=== PATIENT | male | born 1945 | race Caucasian/White ===

== ENCOUNTER 2018-11-02 13:50 | Inpatient (IN) | payer MEDICARE, BC ==
[~2018-11-02] VITALS: Ht 185.4 cm; Wt 120.0 kg
--- NOTE | 2018-11-02 14:00 | NUR ---
LEVEL 1 STROKE ALERT WITH LAST KNOWN WELL AT 100 THIS MORNING. AT 11:30 PT WENT TO FIND OUT WHY IT TOOK HER SPOUSE SO LONG TO PUT SHOES ON AND HE BEGAN TO TALK NONSENSE. THIS LASTED MAYBE AN HOUR. HE JUST WASN'T HIMSELF. HE WAS ABLE TO WALK. CURRENTLY HE IS ORIENTED EXCEPT COULD NOT STATE THE YEAR. HE IS ON WARFARIN FOR AN AVR REPLACEMENT IN 1993. PER HIM HIS INR WAS 2.4 2 WEEKS AGO. H/O AVR, ELEVATED CHOLESTEROL,HTN. PT CURRENTLY IN AFIB, DENIES ANY H/O AFIB. [address] Mckeon FROM [facility] AFTER VERBAL CONSENT OBTAINED. NO TPA RECOMMENDED DUE TO WARFARIN USE DAILY EVEN THOUGH INR IS PENDING FROM OUR LAB
--- NOTE | 2018-11-02 14:05 | NUR ---
BRICE RN, STROKE NURSE AT BEDSIDE,
--- NOTE | 2018-11-02 14:13 | NUR ---
PT TRANSPORTED TO CT SCAN WITH STROKE REMEDIOS NARVAEZ AND BIOMEDICAL FIELD SERVICE ENGINEER.
--- NOTE | 2018-11-02 14:21 | NUR ---
TELE NEURO CONSULT INITIATED
[2018-11-02 14:23] LABS: BASOPHILS % (AUTO) 0.3 % (0-1); EOSINOPHILS % (AUTO) 0.3 % (0-6); HEMATOCRIT 37.7 % (42.0-52.0); LYMPHOCYTES % (AUTO) 10.3 % (21-51); MEAN CORPUSCULAR HEMOGLOBIN 32.5 PG (27.0-31.0); MEAN CORPUSCULAR HGB CONC 34.5 g/dL (33.0-36.5); MEAN CORPUSCULAR VOLUME 94.2 FL (78-98); MEAN PLATELET VOLUME 8.5 FL (7.4-10.4); MONOCYTES # (AUTO) 1.1 X10'3 (0-0.9); MONOCYTES % (AUTO) 11.4 % (2-12); NEUTROPHILS # (AUTO) 7.6 X10'3 (1.8-7.7); NEUTROPHILS % (AUTO) 77.7 % (42-75); PLATELET COUNT 208 X10'3 (140-440); WHITE BLOOD COUNT 9.8 X10'3 (4.5-11.0)
[2018-11-02 14:35] LABS: PARTIAL THROMBOPLASTIN TIME 37 SECONDS (22-32)
[2018-11-02 14:37] LABS: ALANINE AMINOTRANSFERASE 20 U/L (12-78); ALBUMIN 3.8 G/DL (3.4-5.0); ALBUMIN/GLOBULIN RATIO 0.9 (1.1-1.5); ALKALINE PHOSPHATASE 60 IU/L (46-116); ANION GAP 11 (8-16); ASPARTATE AMINO TRANSFERASE 20 U/L (10-37); BILIRUBIN,TOTAL 1.2 MG/DL (0.1-1.0); BLOOD UREA NITROGEN 23 MG/DL (7-18); CALCIUM 9.3 MG/DL (8.5-10.1); CHLORIDE 100 MMOL/L (99-107); CREATININE 1.44 MG/DL (0.60-1.10); GLUCOSE 121 MG/DL (70-104); POTASSIUM 3.9 MMOL/L (3.5-5.1); SODIUM 139 MMOL/L (135-145); TOTAL CARBON DIOXIDE 28.3 MMOL/L (24-32); TOTAL PROTEIN 7.9 G/DL (6.4-8.2); eGFR 48 ML/MIN
[2018-11-02 14:40] LABS: TROPONIN I < 0.04 NG/ML (0.0-0.05)
[2018-11-02] MEDS ORDERED: ROSU10TA2 PO (15:25)
[2018-11-02] MEDS ORDERED: METO200T49 PO (15:31)
[2018-11-02] MEDS ORDERED: DICL75TA5 PO (15:31)
[2018-11-02] MEDS ORDERED: OLME1TAB24 PO (15:31)
[2018-11-02] MEDS ORDERED: WARF-55 PO (15:31)
[2018-11-02] MEDS ORDERED: WARF3TAB56 PO ×2 (15:42)
[2018-11-02] MEDS ORDERED: DICL100G30 TP (15:45)
[2018-11-02] MEDS ORDERED: DICL100G15 TOP (15:51)
[2018-11-02] MEDS ORDERED: magnesium hydroxide 30ml (MOM) UD suspension PO PRN (16:15)
[2018-11-02] MEDS ORDERED: potassium Cl 20 mEq SR tablet PO PRN (16:15)
[2018-11-02] MEDS: K and/or MAG REPLACEMENT MC SCH (16:15)
[2018-11-02] MEDS ORDERED: HYDROcodone/acetaminophen 5mg/325mg tablet PO PRN (16:15)
[2018-11-02] MEDS ORDERED: diphenhydrAMINE 25mg capsule PO PRN (16:15)
[2018-11-02] MEDS ORDERED: acetaminophen 650mg rectal suppository RC PRN (16:15)
[2018-11-02] MEDS ORDERED: potassium CL 10mEq/100ml bag 100 ML IV PRN ×2 (16:15)
[2018-11-02] MEDS ORDERED: magnesium 2GM in 50ml NS 50 ML IV PRN (16:15)
[2018-11-02] MEDS ORDERED: bisacodyl 10mg suppository rectal RC PRN (16:15)
[2018-11-02] MEDS ORDERED: acetaminophen 325mg tablet PO PRN ×2 (16:15)
[2018-11-02] MEDS ORDERED: morphine 2 MG/ML inj. syringe IV PRN ×2 (16:15)
[2018-11-02] MEDS ORDERED: mag hydrox/Alum hydrox/simeth 30ml oral suspension PO PRN (16:15)
[2018-11-02] MEDS ORDERED: ondansetron/PF 4mg/2ml inj IV PRN (16:15)
[2018-11-02] MEDS ORDERED: magnesium 4gm in 100ml NS 100 ML IV PRN (16:15)
[2018-11-02] MEDS ORDERED: magnesium Cl slow-release 64mg tablet PO PRN (16:15)
[2018-11-02] MEDS ORDERED: aspirin 325mg tablet PO ONE (16:25)
[2018-11-02] MEDS: DICLOFENAC SODIUM 1 GM TOP SCH ×2 (16:55→20:00)
[2018-11-02 17:29] LABS: HEMOGLOBIN A1C 5.6 % (4.5-6.2)
--- NOTE | 2018-11-02 17:30 | NUR ---
pt arrived to 4022A from MRI and ER. Pt alert and oriented. Oriented pt to room. Pt c/o right foot pain that is chronic d/t neuropathy and arthritis. Denies any other pain.
[2018-11-02] MEDS: atorvastatin 10mg tablet PO SCH (18:04)
[2018-11-02 18:07] VITALS: BP 136/75
[2018-11-02] MEDS: normal saline 1000ml 1,000 ML IV SCH (18:07)
[2018-11-02 20:00] VITALS: BP 136/75
[2018-11-02] MEDS ORDERED: warfarin 5mg tablet PO ONE (21:00)
[2018-11-02] MEDS: furosemide 20 MG/2 ML vial IV SCH (21:29)
[2018-11-02 22:00] VITALS: BP 119/69
[2018-11-03 02:00] VITALS: BP 128/74
[2018-11-03] MEDS: DICLOFENAC SODIUM 1 GM TOP SCH ×4 (02:00→20:00)
[2018-11-03] MEDS: normal saline 1000ml 1,000 ML IV SCH ×3 (02:19→19:22)
--- NOTE | 2018-11-03 06:00 | NUR ---
Patient in room ORTHO 4022. I have received report from [place] and had the opportunity to ask questions and assume patient care.
[2018-11-03 06:04] LABS: BASOPHILS % (AUTO) 0.4 % (0-1); EOSINOPHILS # (AUTO) 0.1 X10'3 (0-0.9); EOSINOPHILS % (AUTO) 0.8 % (0-6); HEMATOCRIT 34.3 % (42.0-52.0); HEMOGLOBIN 11.8 g/dl (14.0-17.9); LYMPHOCYTES # (AUTO) 0.9 X10'3 (1.1-4.8); LYMPHOCYTES % (AUTO) 11.8 % (21-51); MEAN CORPUSCULAR HGB CONC 34.5 g/dL (33.0-36.5); MEAN CORPUSCULAR VOLUME 92.8 FL (78-98); MEAN PLATELET VOLUME 9.1 FL (7.4-10.4); MONOCYTES # (AUTO) 0.9 X10'3 (0-0.9); MONOCYTES % (AUTO) 10.9 % (2-12); NEUTROPHILS % (AUTO) 76.1 % (42-75); PLATELET COUNT 185 X10'3 (140-440); RED CELL DISTRIBUTION WIDTH 13.9 % (11.5-14.5); WHITE BLOOD COUNT 7.9 X10'3 (4.5-11.0)
[2018-11-03 07:00] VITALS: BP 120/73
[2018-11-03 07:10] LABS: ALANINE AMINOTRANSFERASE 17 U/L (12-78); ALBUMIN 3.3 G/DL (3.4-5.0); ALBUMIN/GLOBULIN RATIO 0.9 (1.1-1.5); ALKALINE PHOSPHATASE 53 IU/L (46-116); ANION GAP 12 (8-16); ASPARTATE AMINO TRANSFERASE 18 U/L (10-37); BILIRUBIN,TOTAL 1.2 MG/DL (0.1-1.0); BLOOD UREA NITROGEN 20 MG/DL (7-18); CHLORIDE 103 MMOL/L (99-107); CHOLESTEROL 131 MG/DL (0-200); CREATININE 1.11 MG/DL (0.60-1.10); GLUCOSE 122 MG/DL (70-104); HDL CHOLESTEROL 64 MG/DL (35-60); LDL CHOLESTEROL 54 MG/DL (50-100); MAGNESIUM 1.9 MG/DL (1.5-2.4); POTASSIUM 3.4 MMOL/L (3.5-5.1); SODIUM 139 MMOL/L (135-145); TOTAL CARBON DIOXIDE 23.6 MMOL/L (24-32); TRIGLYCERIDES 91 MG/DL (20-135); eGFR 65 ML/MIN
[2018-11-03] MEDS: losartan 50mg tablet PO SCH (08:00)
[2018-11-03] MEDS: furosemide 20 MG/2 ML vial IV SCH ×2 (08:00→19:20)
[2018-11-03] MEDS: K and/or MAG REPLACEMENT MC SCH (08:00)
[2018-11-03] MEDS: metoprolol succinate 25mg (24-HOUR) SR. Tablet PO SCH (08:00)
[2018-11-03] MEDS ORDERED: non-formulary drug (Rosuvastatin Calcium* (Crestor*) 1 TAB) PO SCH (08:00)
[2018-11-03] MEDS: HYDROchlorothiazide 25mg tablet PO SCH (08:00)
[2018-11-03 08:20] VITALS: BP 96/59
[2018-11-03] MEDS: aspirin 81mg tablet.DR PO SCH (08:25)
[2018-11-03] MEDS: potassium Cl 20 mEq SR tablet PO PRN ×3 (08:25→20:42)
[2018-11-03] MEDS: atorvastatin 10mg tablet PO SCH (08:26)
[2018-11-03] MEDS: HYDROcodone/acetaminophen 10/325mg tab PO PRN ×2 (09:49→21:53)
[2018-11-03 10:00] VITALS: BP 124/69
[2018-11-03] MEDS ORDERED: pneumococcal 23-VAL P-sac vacc 25 mcg/0.5ml vial IMVAC ONE (10:00)
--- NOTE | 2018-11-03 15:33 | NUR ---
PAGER ID: [phone] MESSAGE: Sho Aldrich, Mr. Mccormick in room 4022A, was inquiring about discharge plans for today. Please advise Thank you Bella # [phone]
--- NOTE | 2018-11-03 17:15 | NUR ---
Dr Aldrich requesting SOC consult regarding right carotid stenosis via carotid U/S of 60-79%. 1800 Spoke with SOC dispatch and requested phone consult with Dr Elinor muse if possible.
[2018-11-03 17:30] VITALS: BP 138/71
--- NOTE | 2018-11-03 18:15 | NUR ---
Patient in room ORTHO 4022. I have received report from Bella WHITTAKER and had the opportunity to ask questions and assume patient care.
--- NOTE | 2018-11-03 18:22 | NUR ---
Problems reprioritized. Patient report given, questions answered & plan of care reviewed with Carmella.
[2018-11-03] MEDS ORDERED: warfarin 3mg tablet PO ONE (21:00)
[2018-11-03 22:00] VITALS: BP 122/63
[2018-11-03 23:45] LABS: CLARITY,URINE CLEAR (Clear); COLOR,URINE YELLOW (Yellow); GLUCOSE, URINE NEGATIVE (Neg); KETONES,URINE NEGATIVE (Neg); LEUKOCYTE ESTERASE ,URINE NEGATIVE (Neg); NITRITES, URINE NEGATIVE (Neg); OCCULT BLOOD,URINE NEGATIVE (Neg); PH,URINE 5.5 (4.8-8.0); PROTEIN,URINE NEGATIVE (Neg); UA COLLECTION TYPE CLN CATCH MIDSTREAM; UROBILINOGEN,URINE 0.2 E.U/dL (0.2-1.0)
[2018-11-04] MEDS: DICLOFENAC SODIUM 1 GM TOP SCH ×2 (02:00→08:00)
[2018-11-04 06:00] VITALS: BP 109/85
--- NOTE | 2018-11-04 06:26 | NUR ---
7Problems reprioritized. Patient report given, questions answered & plan of care reviewed with Bella WHITTAKER and Marie ZARAGOZA. Addendum: 11/04/18 at 0627 by Carmella Cummings RN Ignore the number 7 from this note
[2018-11-04 06:57] LABS: BASOPHILS % (AUTO) 0.4 % (0-1); EOSINOPHILS # (AUTO) 0.2 X10'3 (0-0.9); EOSINOPHILS % (AUTO) 2.9 % (0-6); HEMATOCRIT 36.3 % (42.0-52.0); HEMOGLOBIN 12.4 g/dl (14.0-17.9); LYMPHOCYTES # (AUTO) 0.6 X10'3 (1.1-4.8); LYMPHOCYTES % (AUTO) 10.5 % (21-51); MEAN CORPUSCULAR HEMOGLOBIN 32.2 PG (27.0-31.0); MEAN CORPUSCULAR HGB CONC 34.1 g/dL (33.0-36.5); MEAN CORPUSCULAR VOLUME 94.5 FL (78-98); MEAN PLATELET VOLUME 9.1 FL (7.4-10.4); MONOCYTES # (AUTO) 0.6 X10'3 (0-0.9); MONOCYTES % (AUTO) 10.1 % (2-12); NEUTROPHILS # (AUTO) 4.4 X10'3 (1.8-7.7); NEUTROPHILS % (AUTO) 76.1 % (42-75); PLATELET COUNT 184 X10'3 (140-440); RED BLOOD COUNT 3.84 X10'6 (4.70-6.10); WHITE BLOOD COUNT 5.8 X10'3 (4.5-11.0)
--- NOTE | 2018-11-04 07:02 | NUR ---
Patient in room ORTHO 4022. I have received report from Carmella and had the opportunity to ask questions and assume patient care.
[2018-11-04 07:09] LABS: ALANINE AMINOTRANSFERASE 21 U/L (12-78); ALBUMIN 3.3 G/DL (3.4-5.0); ALBUMIN/GLOBULIN RATIO 0.8 (1.1-1.5); ALKALINE PHOSPHATASE 60 IU/L (46-116); ANION GAP 9 (8-16); ASPARTATE AMINO TRANSFERASE 21 U/L (10-37); BILIRUBIN,TOTAL 0.9 MG/DL (0.1-1.0); BLOOD UREA NITROGEN 22 MG/DL (7-18); BUN/CREATININE RATIO 20.2 (5.4-32.0); CALCIUM 9.6 MG/DL (8.5-10.1); CHLORIDE 103 MMOL/L (99-107); CREATININE 1.09 MG/DL (0.60-1.10); GLUCOSE 113 MG/DL (70-104); MAGNESIUM 2.1 MG/DL (1.5-2.4); POTASSIUM 4.2 MMOL/L (3.5-5.1); SODIUM 140 MMOL/L (135-145); TOTAL CARBON DIOXIDE 27.8 MMOL/L (24-32); TOTAL PROTEIN 7.3 G/DL (6.4-8.2); eGFR 66 ML/MIN
[2018-11-04] MEDS: K and/or MAG REPLACEMENT MC SCH (08:00)
[2018-11-04] MEDS: furosemide 20 MG/2 ML vial IV SCH (08:27)
[2018-11-04] MEDS: losartan 50mg tablet PO SCH (08:27)
[2018-11-04] MEDS: HYDROchlorothiazide 25mg tablet PO SCH (08:27)
[2018-11-04] MEDS: atorvastatin 10mg tablet PO SCH (08:28)
[2018-11-04] MEDS: aspirin 81mg tablet.DR PO SCH (08:28)
[2018-11-04] MEDS: metoprolol succinate 25mg (24-HOUR) SR. Tablet PO SCH (08:28)
[2018-11-04] MEDS ORDERED: ASPI-1071 PO (08:48)
[2018-11-04 10:00] VITALS: BP 125/71
--- NOTE | 2018-11-04 11:50 | NUR ---
Reviewed discharge instructions with pt and spouse. Pt verbalized understanding. Pt is alert, oriented and does not have any c/o pain. All of pt's belongings were returned to pt. Pt was wheeled downstairs to be driven home by his spouse.
== END 2018-11-04 11:45 | disposition home or self-care (01) | DRG 69 ==
LOC: ER 13:52 → ORTHO 4S 17:10
PROVIDERS: ADMIT Family Medicine; ATTEND Family Medicine
PROC: 3E0234Z Introduction of Serum, Toxoid and Vaccine into Muscle, Percutaneous Approach (ICD-10-PCS; principal; 2018-11-03)
PROC: 4A10X4Z Monitoring of Central Nervous Electrical Activity, External Approach (ICD-10-PCS; 2018-11-03)
DX: G45.9 Transient cerebral ischemic attack, unspecified (principal); N17.9 Acute kidney failure, unspecified; E78.00 Pure hypercholesterolemia, unspecified; E78.5 Hyperlipidemia, unspecified; E86.0 Dehydration; G62.9 Polyneuropathy, unspecified; R60.0 Localized edema; I65.21 Occlusion and stenosis of right carotid artery; I10 Essential (primary) hypertension; I48.91 Unspecified atrial fibrillation; Z79.01 Long term (current) use of anticoagulants; Z23 Encounter for immunization; Z79.899 Other long term (current) drug therapy; Z82.0 Family history of epilepsy and other diseases of the nervous system; Z82.49 Family history of ischemic heart disease and other diseases of the circulatory system; Z95.2 Presence of prosthetic heart valve
CPT/HCPCS: 36415; 70450; 70544; 70551; 71045; 80053; 80061; 81003; 82948; 83036; 83735; 84443; 84484; 85025; 85610; 85730; 87081; 90732; 92508; 92616; 93005; 93306; 93880; 93970; 95816; 97116; 97161; 97530; 99285; G0378; J1940; J7030

== ENCOUNTER 2019-12-04 13:34 | Day surgery (SDC) | payer MEDICARE, BC ==
[2019-12-04] VITALS (7 sets, daily range): BP systolic 131–147; BP diastolic 68–82
[~2019-12-04] VITALS: Ht 182.9 cm; Wt 124.5 kg
[~2019-12-04 13:34] MED LIST: ACET-1008 PO; ASPI-529 PO; ATOR20TA66 PO; CELE200C PO; DOCU-148 PO; DOCUMENT DATE & TIME OF BETA-BLOCKER PO ONE; FURO40TA4 PO; HYDR-4383 PO; LOSA50TA64 PO; MESSAGE TO NURSING IV ONE; METO50TA7 PO; OMEP-50 PO; POTA20TA19 PO; WARF3TAB56 PO; famotidine 20mg tablet PO ONE; meperidine/PF 25mg/ml syringe IV PRN; morphine 2 MG/ML inj. syringe IV PRN; morphine 4 MG/ML inj SYRINge IV PRN; ondansetron/PF 4mg/2ml inj IV PRN; proCHLORperazine 10 MG/2 ml inj IV PRN; ringers solution, lacted 1,000 ML IV SCH
[2019-12-04 14:46] LABS: BASOPHILS % (AUTO) 0.6 % (0-1); EOSINOPHILS # (AUTO) 0.2 X10'3 (0-0.9); EOSINOPHILS % (AUTO) 2.7 % (0-6); LYMPHOCYTES # (AUTO) 0.7 X10'3 (1.1-4.8); MEAN CORPUSCULAR HEMOGLOBIN 30.4 PG (27.0-31.0); MEAN CORPUSCULAR HGB CONC 33.8 g/dL (33.0-36.5); MEAN PLATELET VOLUME 8.6 FL (7.4-10.4); MONOCYTES # (AUTO) 0.5 X10'3 (0-0.9); MONOCYTES % (AUTO) 8.7 % (2-12); NEUTROPHILS # (AUTO) 4.5 X10'3 (1.8-7.7); PRE OP HEMATOCRIT 35.5 % (42.0-52.0); PRE OP PLATELET COUNT 242 X10'3 (140-440); RED BLOOD COUNT 3.94 X10'6 (4.70-6.10); RED CELL DISTRIBUTION WIDTH 15.1 % (11.5-14.5)
[2019-12-04 14:59] LABS: PRE OP PROTIME 22.4 SECONDS (9.0-12.0)
[2019-12-04 15:02] LABS: ALBUMIN 3.1 G/DL (3.4-5.0); ALBUMIN/GLOBULIN RATIO 0.8 (1.1-1.5); ALKALINE PHOSPHATASE 95 IU/L (46-116); BLOOD UREA NITROGEN 18 MG/DL (7-18); BUN/CREATININE RATIO 18.8 (5.4-32.0); CALCIUM 9.8 MG/DL (8.5-10.1); CHLORIDE 105 MMOL/L (99-107); CREATININE 0.96 MG/DL (0.60-1.10); PRE OP ALT 24 U/L (30-65); PRE OP ANION GAP 11 (8-16); PRE OP AST 26 U/L (10-37); PRE OP BILIRUB, TOTAL 0.9 MG/DL (0.0-1.0); PRE OP GLUCOSE 95 MG/DL (70-104); PRE OP INR 2.2 INR; PRE OP POTASSIUM 4.5 MMOL/L (3.4-5.1); PRE OP SODIUM 140 MMOL/L (135-145); TOTAL CARBON DIOXIDE 24.5 MMOL/L (24-32); TOTAL PROTEIN 6.9 G/DL (6.4-8.2); eGFR 77 ML/MIN
[2019-12-04] MEDS ORDERED: HYDROmorphone inj. 0.5 MG/0.5 ML DISP.SYRIN IV PRN ×2 (16:00)
[2019-12-04] MEDS ORDERED: ondansetron/PF 4mg/2ml inj IV PRN (16:00)
[2019-12-04] MEDS ORDERED: ringers solution, lacted 1,000 ML IV SCH (16:00)
[2019-12-04] MEDS ORDERED: morphine 2 MG/ML inj. syringe IV PRN (16:00)
[2019-12-04] MEDS ORDERED: fentaNYL/PF 50MCG/1 ML 2ML syringe ONE ×2 (16:05→17:00)
[2019-12-04] MEDS ORDERED: LIDOcaine 2% (20mg/ml) 5ml vial ONE (16:06)
[2019-12-04] MEDS ORDERED: propofol inj 20 ML IV ONE (16:06)
[2019-12-04] MEDS ORDERED: vancomycin 1,000mg inj ONE (16:19)
[2019-12-04] MEDS ORDERED: sevoflurane 250ml liquid IH ONE (16:31)
[2019-12-04] MEDS ORDERED: ceFAZolin 1000mg inj ONE (17:26)
[2019-12-04] MEDS ORDERED: ondansetron/PF 4mg/2ml inj ONE (17:26)
[2019-12-04] MEDS ORDERED: ePHEDrine 50MG/ML INJ. ONE (17:26)
[2019-12-04] MEDS ORDERED: acetaminophen 1,000mg/100ml IV 100 ML IV ONE (17:26)
--- NOTE | 2019-12-04 17:37 | NUR ---
Received from OR via [facility], accompanied by Anesthesiologist Lexus and report given by Anesthesiolgist. VS stable, pt very sleepy, mask to 10L sats 98%. 20G right forearm LR IVF at 100cc/hr. Pt surgical knee (left) has xeroform 4x4s and michael wrap underneath immobilizer brace. Distal pulses palpable. Will apply ice, cannot apply scds.
--- NOTE | 2019-12-04 19:17 | NUR ---
Pt discharged to vehicle without incident. IV DC'd. [facility] personnel assisted with transfer into vehicle. will transport back to [facility]. Pt is back in his own wheelchair. Knee dressing remains CDI. All belongings returned to patient. He is alert and oriented, understanding of all DC instructions. I spoke with Ellis WHITTAKER at [facility] prior to patient being transported and gave him report on pt status post op. All his questions were answered.
== END 2019-12-04 19:17 | disposition home or self-care (01) ==
LOC: PAS 13:34
PROVIDERS: ATTEND Orthopaedic Surgery
DX: S76.111A Strain of right quadriceps muscle, fascia and tendon, initial encounter (principal); I10 Essential (primary) hypertension; I48.91 Unspecified atrial fibrillation; E66.9 Obesity, unspecified; Z68.37 Body mass index [BMI] 37.0-37.9, adult; Z86.73 Personal history of transient ischemic attack (TIA), and cerebral infarction without residual deficits; Z96.652 Presence of left artificial knee joint; Z20.828 Contact with and (suspected) exposure to other viral communicable diseases; Z98.890 Other specified postprocedural states; Z79.01 Long term (current) use of anticoagulants; W19.XXXA Unspecified fall, initial encounter; Y93.89 Activity, other specified; Y92.89 Other specified places as the place of occurrence of the external cause; Y99.8 Other external cause status
CPT/HCPCS: 27385; 36415; 80053; 85025; 85610; 85730; 87635; A6222; A6454; C9803; J0131; J0690; J2001; J2405; J2704; J3010; J3370; A6449; A7000; J7120

== ENCOUNTER 2024-12-19 20:07 | Inpatient (IN) | payer MEDICARE, BC ==
[~2024-12-19] VITALS: Ht 185.4 cm; Wt 102.3 kg
[~2024-12-19 20:07] MED LIST changes: -DOCUMENT DATE & TIME OF BETA-BLOCKER PO ONE; -MESSAGE TO NURSING IV ONE; -OMEP-50 PO; +OMEP20CA16 PO; +POTA-207 PO; -POTA20TA19 PO; -famotidine 20mg tablet PO ONE; -meperidine/PF 25mg/ml syringe IV PRN; -morphine 2 MG/ML inj. syringe IV PRN; -morphine 4 MG/ML inj SYRINge IV PRN; -ondansetron/PF 4mg/2ml inj IV PRN; -proCHLORperazine 10 MG/2 ml inj IV PRN; -ringers solution, lacted 1,000 ML IV SCH
[2024-12-19 21:36] LABS: CREATININE 1.30 MG/DL (0.60-1.10); TOTAL CARBON DIOXIDE 22.8 MMOL/L (24-32); eCRCL 53 ML/MIN; eGFR 53 ML/MIN
[2024-12-19 21:37] LABS: MEAN PLATELET VOLUME 9.6 FL (7.4-10.4); RED CELL DISTRIBUTION WIDTH 14.5 % (11.5-14.5)
--- NOTE | 2024-12-19 22:04 | ELECTROCARDIOGRAPH REPORT ---
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 HANH Muñoz Measurements Intervals [place] Rate: 77 P: 0 AL: 0 QRS: -44 QRSD: 103 T: 34 QT: 389 QTc: 441 Interpretive Statements Atrial fibrillation Left axis deviation Abnormal R-wave progression, late transition Minimal ST depression, lateral leads Electronically Signed On 12-22-2024 18:00:[address] HANH Muoñz Please click the below link to view image of tracing.
[2024-12-19 22:10] LABS: BANDS% (MANUAL) 4.0 % (0-10); EOSINOPHILS % (MANUAL) 1.0 % (0-6); LYMPHOCYTES % (MANUAL) 3.0 % (21-51); MONOCYTES % (MANUAL) 3.0 % (2-12); NEUTROPHILS % (MANUAL) 89.0 % (42-75); PLATELET ESTIMATE NORMAL
--- NOTE | 2024-12-19 23:57 | Physician Documentation ---
History of Present Illness ~ Chief Complaint: Weakness Stated Complaint: POSSIBLE STROKE Time Seen by MD: 23:45 OK to notify your PCP?: Yes Primary Medical Doctor: Alan Roberts MD HPI Patient presents to the emergency room not acting like himself. at bedside states that he woke up this morning that has acting like himself but around noon started to act in usual. Patient does have weakness but it is generalized. at bedside states that he seemed to improve however this evening started to experience it again therefore brought him in to be evaluated. Patient alert and oriented but slow to respond. 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 Medication Reconciliation Allergies: Coded Allergies: No Known Allergies (Unverified , 11/02/18) Scheduled Aspirin (Baby Aspirin), 1 TAB PO HS, (Reported) Atorvastatin Calcium (Atorvastatin Calcium), 1 TAB PO HS, (Reported) Furosemide 40 MG (Lasix), 1 TAB PO DAILY, (Reported) Losartan Potassium (Losartan Potassium), 1 TAB PO DAILY, (Reported) Metoprolol Succinate (Metoprolol Succinate), 1 TAB PO DAILY, (Reported) Potassium Chloride (Potassium Chloride), 1 TAB PO DAILY, (Reported) Warfarin Sodium (Warfarin Sodium), 1 TAB PO DAILY, (Reported) Discontinued Medications Acetaminophen (Tylenol), 2 TAB PO QDAY PRN PRN for pain or fever, (Reported) Discontinued Reason: completed med therapy Celecoxib (Celebrex), 1 CAP PO DAILY, (Reported) Discontinued Reason: completed med therapy Docusate Sodium (Colace), 1 CAP PO Q12H, (Reported) Discontinued Reason: completed med therapy Hydrocodone/Acetaminophen ([place] 5-325 Tablet), 1-2 TAB PO Q4HPRN PRN for pain, (Reported) Discontinued Reason: completed med therapy Losartan Potassium (Losartan Potassium), 1 TAB PO DAILY, (Reported) Discontinued Reason: completed med therapy Metoprolol Succinate* (Toprol Xl*), 1 TAB PO DAILY, (Reported) Discontinued Reason: completed med therapy Omeprazole (Omeprazole), 1 CAP PO DAILY, (Reported) Discontinued Reason: completed med therapy Potassium Chloride* (K-Dur*), 2 TAB PO QAM, (Reported) Discontinued Reason: completed med therapy Past Medical History Past Medical History: Atrial Fibrillation, High Cholesterol, Hypertension Past Surgical History: noncontributory, heart valve surgery Alcohol Use: Other Drug Use: none Lives In: Home Occupation: retired Review of Systems ROS All review of systems negative except as per HPI Physical Exam Vital Signs: Heart Rate: 104, Respiratory Rate: 16, BP: 185/96, Pulse Oximetry: 94, Weight: 102.300 Physical Exam General: Patient is awake, alert, oriented x4 in no acute distress Head: Normocephalic and atraumatic. Eyes: Conjunctival normal. EOMI. PERRL. ENT: Mucous membranes moist. Neck: Supple, trachea is midline. Chest: Clear to auscultation bilaterally without rales, rhonchi, or wheezes. There is no accessory muscle use or retractions. Cardiac: RRR without murmurs, gallops, or rubs. Abd: Soft, nondistended, nontender, with normoactive bowel sounds. No guarding, rebound, or rigidity. Extremities: Normal strength. Normal range of motion. No deformities or edema. Ulcer measuring 8 cm x 4 cm on anterior left mcdonnell without purulent drainage. Neuro: Cranial nerves II-XII grossly intact. No focal neuro deficits. Progress Results/Orders Results/Orders Orders - QUE RIVAS MD Culture Blood (12/19/24 23:46) Chest,Single View (12/20/24 00:12) Cta Abdomen Lower Extr Runoff (12/20/24 01:01) Ct Head (12/20/24 01:05) Page Hospitalist (12/20/24 04:59) Fill Out Med Reconciliation (12/20/24 04:59) Completed Orders - QUE RIVAS MD Procalcitonin (12/19/24 23:46) Ceftriaxone 2gm/D5w 50ml Bag (Rocephin 2 (12/19/24 23:50) Lacticsepsis (12/19/24 23:46) Normal Saline 1000ml (0.9% Sodium Chlori (12/19/24 23:50) Chest,Single View (12/20/24 00:12) Acetaminophen 325mg Tablet (Tylenol Tabl (12/20/24 00:25) Cta Abdomen Lower Extr Runoff (12/20/24 01:01) Vancomycin Inj (Vancomycin Inj) (12/20/24 01:05) Ct Head (12/20/24 01:05) Lactic,2hr (12/20/24 01:41) Iohexol 350mg/Ml 100ml (Omnipaque 350mg/ (12/20/24 02:17) Vancomycin/Ns 1 Gm Add-[place] (Vancomyc (12/20/24 02:20) Medications Received in ER Medications (Trade) Dose Ordered Sig/Bartolo Route PRN Reason Start Time Stop Time Status Last Admin Dose Admin Ceftriaxone Sodium/Dextrose 50 ml @ 100 mls/hr ONCE ONCE IV 12/19/24 23:50 12/20/24 00:19 DC 12/20/24 00:22 100 MLS/HR Sodium Chloride 1,000 ml @ 1,000 mls/hr ONCE ONCE IV 12/19/24 23:50 12/20/24 00:49 DC 12/20/24 00:22 1,000 MLS/HR (Tylenol tablet) 650 mg ONCE ONCE PO 12/20/24 00:25 12/20/24 00:26 DC 12/20/24 00:40 650 MG Vancomycin HCl 200 ml @ 134 mls/hr ONCE ONCE IV 12/20/24 02:20 12/20/24 03:49 DC 12/20/24 03:08 134 MLS/HR Vital Signs 12/19/24 12/20/24 12/20/24 12/20/24 20:08 00:36 00:38 01:00 Temp 99.2 Pulse 104 70 73 Resp 16 19 20 B/P (MAP) 185/96 142/72 (95) 140/72 (94) Pulse Ox 94 95 94 O2 Flow Rate 0 0 12/20/24 12/20/24 12/20/24 02:00 03:00 04:25 Temp 98.2 Pulse 72 67 62 Resp 17 20 21 B/P (MAP) 123/68 (86) 126/75 (92) 139/79 (99) Pulse Ox 93 96 94 O2 Flow Rate 0 0 0 Laboratory Tests Test 12/19/24 21:00 12/20/24 00:00 12/20/24 00:30 12/20/24 02:23 White Blood Count 18.4 H Red Blood Count 4.17 L Hemoglobin 12.8 L Hematocrit 38.1 L Mean Corpuscular Volume 91.5 Mean Corpuscular Hemoglobin 30.7 Mean Corpuscular Hemoglobin Concent 33.6 Red Cell Distribution Width 14.5 Platelet Count 191 Mean Platelet Volume 9.6 Neutrophils (%) (Auto) Lymphocytes (%) (Auto) Monocytes (%) (Auto) Eosinophils (%) (Auto) Basophils (%) (Auto) Neutrophils # (Auto) Lymphocytes # (Auto) Monocytes # (Auto) Eosinophils # (Auto) Basophils # (Auto) CBC Comment Differential Total Cells Counted 100 Neutrophils % (Manual) 89.0 H Band Neutrophils % 4.0 Lymphocytes % (Manual) 3.0 L Monocytes % (Manual) 3.0 Eosinophils % (Manual) 1.0 Platelet Estimate Normal Red Blood Cell Morphology Normal Basophilic Stippling Sodium Level 138 Potassium Level 4.2 Chloride Level 104 Carbon Dioxide Level 22.8 L Anion Gap 11 Blood Urea Nitrogen 23 H Creatinine 1.30 H Estimated GFR/1.73 m2 53 BUN/Creatinine Ratio 17.7 Glucose Level 135 H Calcium Level 9.0 Albumin 3.7 Procalcitonin 1.74 H Chemistry Comments Lactic Acid Level 2.3 H 1.0 Urine Specimen Description Straight cath Urine Color Yellow Urine Clarity Clear Urine pH 5.5 Urine Specific [place] >=1.030 Urine Protein 30 H Urine Glucose (UA) Negative Urine Ketones Negative Urine Occult Blood Small Urine Nitrite Negative Urine Bilirubin Negative Urine Urobilinogen 0.2 Urine Leukocyte Esterase Negative Urine RBC 3-10 Urine WBC 0-4 Urine Squamous Epithelial Cells Few Urine Amorphous Urates 1+ Urine Bacteria None seen Urine Fine Granular Casts 0-3 Urine Mucus None seen Urine Culture Indicated Not ind Volume Urine Centrifuged 10 ml Urine Comment Microbiology Date/Time Source Procedure Growth Status 12/20/24 00:22 Blood Iv Start Blood Culture - Preliminary NEGATIVE (LESS THAN 24 HOURS) Resulted Medical Decision Making Additional information obtaine: N/A Findings EKG interpreted by myself shows time of 03/30/2001, rate 77, atrial fibrillation, left axis deviation, no ST changes Patient presents to the emergency room altered. Differentials include but are not limited to stroke, metabolic encephalopathy, urinary tract infection, electrolyte disturbances therefore emergent labs and imaging indicated. Patient is borderline septic and IV antibiotics has been initiated. Zolpidem infection seems to be cellulitis to his left mcdonnell. Blood pressure is reassuring Differential Dx:Considerations: Include: anemia, CVA, dehydration, dysrhythmia, electrolyte imbalance, encephalopathy, Guillain-Page, hypoglycemia, hypotension, hypovolemia, labyrinthitis, Meniere's disease, myasathenia gravis, myocardial infarction, pulmonary embolus, renal failure, respiratory failure, TIA, VBI, vertigo central, vertigo peripheral, vestibular neuronitis, other Departure Disposition: 01 HOME / SELF CARE / HOMELESS Impression: Primary Impression: Cellulitis Additional Impressions: Early sepsis Metabolic encephalopathy Condition: Guarded Referrals: NO PRIMARY CARE PROVIDER (PCP) Signature Scribe Signature: No scribe Attestation: The note accurately reflects work and decisions made by me.Que Rivas MD 12/20/24 05:58 QUE RIVAS MD Dec 19, 2024 23:57
[2024-12-20] VITALS (8 sets, daily range): BP systolic 106–165; BP diastolic 63–80; PULSE 65–85; RESP 14–16; TEMP 97.5–98.6; O2SAT 94–97
[2024-12-20] MEDS: normal saline 1000ml 1,000 ML IV ONE (00:22)
[2024-12-20] MEDS: CefTRIAXone 2gm/D5W 50ml BAG 50 ML IV ONE (00:22)
--- NOTE | 2024-12-20 00:32 | RADIOLOGY REPORT ---
EXAM: DI CHEST,SINGLE VIEW TECHNIQUE: Single frontal chest radiograph CLINICAL HISTORY: suspected pneumonia COMPARISON: None FINDINGS/IMPRESSION: Minimal basilar opacities. Enlargement of the cardiomediastinal silhouette. No pleural effusion or pneumothorax. Median sternotomy changes are noted. No acute osseous abnormality.
[2024-12-20 00:45] LABS: LEUKOCYTE ESTERASE ,URINE NEGATIVE (Neg); NITRITES, URINE NEGATIVE (Neg); OCCULT BLOOD,URINE SMALL (Neg)
[2024-12-20 00:55] LABS: UA COLLECTION TYPE STRAIGHT CATH
[2024-12-20 00:57] LABS: AMORPHOUS URATES 1+; FINE GRANULAR CAST 0-3 /LPF (NEGATIVE); MUCUS STRANDS NONE SEEN /LPF (Neg); SQUAMOUS EPITHELIAL CELL,UR FEW /LPF (FEW)
[2024-12-20] MEDS ORDERED: vancomycin inj 1,000 MG in normal saline 250ml IV soln 250 ML IV ONE (01:05)
[2024-12-20] MEDS ORDERED: METO-395 PO (01:28)
[2024-12-20] MEDS ORDERED: POTA-366 PO (01:30)
[2024-12-20] MEDS ORDERED: LOSA100T58 PO (01:31)
[2024-12-20] MEDS: vancomycin/NS 1 GM ADD-VANTAGE 200 ML IV ONE (03:08)
--- NOTE | 2024-12-20 03:19 | RADIOLOGY REPORT ---
EXAM: CT CT HEAD INDICATION: ams TECHNIQUE: CT of the head without intravenous contrast. Radiation Dose Information: CT Dose: CTDI volume is 64.0 mGy. Dose-length product is 1432 mGy*cm The dose indicators for CT are the volume Computed Tomography (CT) Dose Index (CTDIvol) and the Dose Length Product (DLP), and are measured in units of mGy and mGy-cm, respectively. These indicators are not patient dose, but values generated from the CT scanner acquisition factors. The report includes radiation exposure data for exposures received during this examination. COMPARISON: None FINDINGS: There is no evidence of acute intracranial hemorrhage, extra-axial collection, mass effect, midline shift, herniation or hydrocephalus. The ventricles, sulci and cisterns are age appropriate. The marcos-white differentiation is intact. Patchy periventricular and subcortical white matter hypoattenuation is nonspecific but may be related to small vessel ischemic disease. The visualized paranasal sinuses and mastoid air cells are clear. The surrounding soft tissues and osseous structures are unremarkable. IMPRESSION: 1. No acute intracranial abnormality.
--- NOTE | 2024-12-20 04:41 | RADIOLOGY REPORT ---
Exam: CT CTA ABDOMEN LOWER EXTR RUNOFF History: Suspected infection Comparison Study: None Technique: CT angiography abdomen pelvis recommended with bilateral lower extremity runoff using 130 mL omnipaque 350 intravenous contrast. Coronal and sagittal reformatted images are provided. Radiation Dose : 1. Abdomen/Pelvis: CTDIvol 11.96 mGy, DLP 290.2 mGy*cm. Findings: Lung Bases: Lung bases are clear. The heart is enlarged. Liver: The liver is normal in size. Low attenuating subcentimeter lesions which are too small to characterize. No focal lesions. Gallbladder and Biliary Tree: The gallbladder is unremarkable. No intrahepatic or extrahepatic biliary ductal dilatation. Spleen: Unremarkable Pancreas: The pancreas enhances normally and there are no focal lesions. The main pancreatic duct is not dilated Adrenal Glands: Unremarkable Kidneys: Kidneys enhance symmetrically. No calculi or hydronephrosis. Left renal cyst. GI tract: The stomach is grossly normal in appearance. No evidence of small bowel wall thickening or abnormal dilatation to suggest bowel obstruction. There is colonic diverticulosis without acute diverticulitis. No findings to suggest acute appendicitis. Peritoneum/mesentery/retroperitoneum. No evidence of free intraperitoneal air. No ascites. No evidence of suspicious lymphadenopathy. Abdominal Wall: Fat containing umbilical hernia . Vasculature: There is no evidence of abdominal aortic aneurysm. There are atherosclerotic calcifications in the abdominal aorta and its branches particularly the celiac and superior mesenteric arteries without significant stenosis. The inferior mesenteric artery is patent. There is moderate stenosis of the origin of the left renal artery and mild to moderate stenosis of the origin of the right renal artery. The splenic artery is patent. Hepatic artery is patent. The bilateral common iliac arteries show scattered atherosclerotic calcifications without significant stenosis. Similar atherosclerotic calcifications are present in the bilateral external and internal iliac arteries. Lower extremity arteries are described below. No active contrast extravasation. Urinary Bladder: Grossly unremarkable for degree of distention. Pelvic Organs: Unremarkable Musculoskeletal: No evidence of periosteal reaction or cortical erosion. No acute fracture. No suspicious bone lesion. Fatty replacement in the bilateral lower extremity muscles. Spinal degenerative changes. Right lower extremity: There are mild atherosclerotic calcifications in the right common femoral and proximal superficial femoral artery without significant stenosis. There is slightly greater atherosclerotic calcifications causing mild stenosis in the distal superficial femoral and the popliteal artery. There is moderate stenosis of the popliteal trifurcation. Heavy atherosclerotic calcifications are present throughout the right anterior tibial, posterior tibial and peroneal artery. Evaluation in the calf arteries is significantly limited by the atherosclerotic calcifications in the vessels and the small size of the vessels which make contrast enhancement difficult to distinguish from the calcification. There appears to be multifocal high-grade stenoses in the right popliteal trifurcation, right posterior tibial, anterior tibial and peroneal arteries. Dorsalis pedis is heavily calcified and difficult to evaluate for patency. There is mild soft tissue swelling in the right lower extremity. No fluid collection. Left lower extremity: The left common femoral artery and superficial femoral artery are patent with mild atherosclerotic calcification seen. The left popliteal artery is obscured at the level of the knee joint due to artifact from total knee arthroplasty. There are atherosclerotic calcifications in the popliteal trifurcation. There is significant multifocal stenoses in the left anterior tibial, posterior tibial and peroneal artery. Dorsalis pedis artery is heavily calcified and difficult to evaluate for patency. There is soft tissue swelling in the anterior and lateral lower extremity. There is contour irregularity in the skin of the distal lower extremity anterior to the tibia which may reflect cellulitis. No fluid collection. IMPRESSION: 1. Evaluation of the calf arteries is limited by the atherosclerotic calcifications in the vessels and the small size of the vessels which make contrast enhancement difficult to distinguish from the calcification. Within this limitation there are multifocal high-grade stenoses in the right popliteal trifurcation and calf arteries. Multifocal high-grade stenoses in the left anterior tibial, posterior tibial and peroneal artery. 2. Soft tissue swelling in the bilateral lower extremities, left greater than right which may reflect cellulitis in the appropriate clinical setting. No fluid collection. 3. Contour irregularity in the skin of the distal left lower extremity anterior to the tibia which may reflect cellulitis. 4. Dorsalis pedis artery is heavily calcified bilaterally and difficult to evaluate for patency. 5. Moderate stenosis of the origin of the left renal artery and mild to moderate stenosis of the origin of the right renal artery. 6. Colonic diverticulosis without acute diverticulitis. 7. Cardiomegaly.
[2024-12-20] MEDS ORDERED: magnesium hydroxide 30ml (MOM) UD suspension PO PRN (05:20)
[2024-12-20] MEDS ORDERED: magnesium sulf-water 2g/50mL 50 ML IV PRN (05:20)
[2024-12-20] MEDS ORDERED: magnesium Cl slow-release 64mg tablet PO PRN (05:20)
[2024-12-20] MEDS ORDERED: ondansetron/PF 4mg/2ml inj IV PRN (05:20)
[2024-12-20] MEDS ORDERED: potassium Cl 40MEQ/1/2NS 520ml 520 ML IV PRN (05:20)
[2024-12-20] MEDS ORDERED: potassium Cl 20 mEq SR tablet PO PRN (05:20)
[2024-12-20] MEDS ORDERED: magnesium sulf-water 4G/100mL 100 ML IV PRN (05:20)
[2024-12-20] MEDS ORDERED: mag hydrox/Alum hydrox/simeth 30ml oral suspension PO PRN (05:20)
[2024-12-20] MEDS ORDERED: ondansetron 4mg rapidly disintigrating tab PO PRN (05:20)
--- NOTE | 2024-12-20 06:37 | HISTORY AND PHYSICAL-Residence ---
History & Physical Providers to CC Resident Creating Document: ROLAND FLORES, RES ~ History of Present Illness Primary Medical Doctor: Alan Roberts MD Reason for Admit\Complaint: Acute metabolic encephalopathy, FIORELLA History of Present Illness This is a 79-year-old male with a past medical history significant for hypertension, aortic stenosis status post TAVR, congestive heart failure, atrial fibrillation, and peripheral artery disease, who presents to the ED with altered level of consciousness. The patient reports no recent changes in speech, focal weakness, facial droop, vision changes, headache, dizziness, syncope, chest pain, palpitations, shortness of breath, or seizure-like activity. He denies fever, chills, nausea, vomiting, or urinary symptoms. He does note altered sensation in his lower extremity, which he attributes to his long-standing peripheral neuropathy. Three weeks ago, the patient underwent surgical resection of melanoma. Since then, he developed a severe infected ulcer on the left lower mcdonnell. In the ED, he received one dose each of ceftriaxone and vancomycin, as well as a 1 L normal saline bolus. CTA of the lower extremity revealed multifocal high-grade stenosis involving the left anterior tibial, posterior tibial, and peroneal arteries. Allergies: Coded Allergies: No Known Allergies (Unverified , 11/02/18) Home Medications Home Medications Active Reported Losartan Potassium 100 Mg Tablet 1 Tab PO DAILY Potassium Chloride 20 Meq Tablet.er 1 Tab PO DAILY Metoprolol Succinate 25 Mg Tab.sr.24h 1 Tab PO DAILY Atorvastatin Calcium 20 Mg Tablet 1 Tab PO HS Baby Aspirin (Aspirin) 81 Mg Tab.chew 1 Tab PO HS Lasix (Furosemide) 40 Mg Tablet 1 Tab PO DAILY Warfarin Sodium 3 Mg Tablet 1 Tab PO DAILY Past Medical History Past Medical History Hypertension Atrial fibrillation Congestive heart failure Melanoma Aortic stenosis this s/p TAVR Past Surgical History Surgical History Comment Total aortic valve replacement Past Social History Social History Comment PCP-Dr. Gray Card[facility]- Lives in home with his family Nonsmoker, occasional alcohol user, denies any drug or marijuana use Smoking: Other Alcohol Use: Other Drug Use: None Lives In: Home Occupation: retired ROS ROS See HPI Exam Vitals: Vital Signs Date Time Temp Pulse Resp B/P (MAP) Pulse Ox O2 Delivery O2 Flow Rate FiO2 12/20/24 05:40 71 19 143/77 (99) 94 0 12/20/24 02:00 98.2 General: Awake , alert, and oriented x4 HEENT: Atraumatic, normocephalic, EOMI, anicteric sclera ; pink conjunctiva Neck: Trachea midline. Supple, full range of motion, no JVD Cardiac: Irregular with 4/6 grade systolic ejection murmur heard all over the precordium Respiratory: Equal breath sounds bilaterally, no tachypnea, no wheezing ,rub or rales, Chest wall is symmetric and without deformity. Gastrointestinal: Abdomen symmetric, non-distended, soft, non-tender, normal bowel sounds x4 quadrant, normoactive, no hepatosplenomegaly Musculoskeletal: 6 cm ulcerated infected wound located on left mcdonnell which is covered with a dressing, Extremities are cold to touch and deformed and peripheral pulses are absent Neurological: Mental status exam: alert and consciousness, orientation, memory, speech - Cranial nerve test: Cranial nerves 2-12 intact - Motor system: Normal Nutrition, normal tone, Power 4/5, no involuntary movements - Sensory system: Numbness in lower extremities(Patient mentioned he is having peripheral neuropathy) - Cerebellar: Normal Skin: Warm and dry Psychiatric:Appropriate mood and affect,No hallucinations or suicidal ideation Diagnostic Data Last Recorded Lab Results: 12/21/2445612/21/24 0457 Advance Care Planning Advanced Care plannin - 30 Minutes Additional Plan 79 years old male with past medical history of hypertension, aortic stenosis s/p TAVR, atrial fibrillation he is currently evaluated for acute metabolic encephalopathy Acute metabolic encephalopathy 2/2 infected ulcer on left lower mcdonnell s/p resection of melanoma Sepsis POA High-grade stenosis of multivessel in lower extremity Differential-stroke can not ruled out Head CT-ruled out any acute intracranial abnormality CTA lower extremity - Multifocal high-grade stenoses in the left anterior tibial, posterior tibial and peroneal artery. WBC-18.4, procalcitonin 1.7, lactic acid 2.3, 1.0 Chest [id number] basilar opacities. Enlargement of the cardiomediastinal silhouette. No pleural effusion or pneumothorax. Median sternotomy changes are noted. No acute osseous abnormality. Patient received 1 L IV bolus in ED, and patient is currently on IV fluids 100 cc/hour Started on Rocephin 1 g IV daily and vancomycin pharmacy to dose Started home med aspirin 81 mg, started atorvastatin 80 mg Neuro checks, wound care consulted, orthostatic vitals ordered Follow up with HbA1c/TSH/lipid panel /ammonia and carotid ultrasound/echocardiogram Acute kidney injury 2/2 renal tubular stasis BUN-23, creatinine 1.3 Patient is currently on maintenance fluid Follow up with spot urine studies Paroxysmal Atrial fibrillation Rate controlled-77 Patient mentioned history of atrial fibrillation and he follows iso coordinator Dr. Jacques Hypertension Patient has a history of hypertension for which she used losartan/metoprolol Patient current blood pressure is over 143/76 Maintain permissive hypertension Aortic stenosis s/p TAVR Patient takes warfarin at home Continue warfarin after med rec Congestive heart failure with preserved ejection-LVEF is 60-65%. ( 09/24/19) not in exacerbation Continue home med after med rec Code Status: Full DVT prophylaxis: Scds Analgesia/Sedation: Line/tube: Peripheral PT: Order Prognosis: Guarded Disposition: Patient will be monitored in ortho with 24 hours telemetry, patient was initially started on heparin drip in view of INR we held heparin, consult Vascular Surgeon in am Roland Flores PGY1-Internal Medicine Resident Addendum I personally reviewed the chart, labs and imaging and reviewed the patient with the team. I agree with the assessment and plan as documented by the resident. Patient was seen through remote audio-visual assessment through HIPAA compliance setup. Date of Service: Dec 20, 2024 Billing Provider: DIMITRI LUNA MD, SATISH, RES Dec 20, 2024 06:37 DIMITRI LUNA MD Dec 21, 2024 11:20
[2024-12-20] MEDS: normal saline 1000ml 1,000 ML IV SCH (06:58)
[2024-12-20 07:14] LABS: INR 2.3 INR
[2024-12-20] MEDS ORDERED: heparin 10,000 units/1 ML INJ IV PRN (07:15)
[2024-12-20] MEDS: HEPARIN DRIP DVT/PE -**PHARMACIST TO DOSE IV ONE (07:21)
[2024-12-20] MEDS: heparin 10,000 units/1 ML INJ IV ONE (07:42)
[2024-12-20 07:43] LABS: APTT 38 SECONDS (22-32)
[2024-12-20] MEDS: docusate sod 100mg capsule PO SCH (07:48)
[2024-12-20] MEDS: heparin 25,000 UNIT/250ml bag 250 ML IV PRN (07:48)
[2024-12-20] MEDS: K and/or MAG REPLACEMENT MC SCH (07:49)
[2024-12-20 07:59] LABS: MEAN PLATELET VOLUME 9.5 FL (7.4-10.4); RED CELL DISTRIBUTION WIDTH 14.7 % (11.5-14.5)
[2024-12-20] MEDS ORDERED: warfarin 3mg tablet PO SCH (08:00)
[2024-12-20 08:44] LABS: CHOL/HDL RATIO 2.1 (0.00-4.99); LDL CHOLESTEROL 63 MG/DL (50-100); PRO BRAIN NATRIURETIC PEPTIDE 9099 PG/ML (0-450)
[2024-12-20] MEDS: PERFLUTREN PROTEIN-A MICROSPHR (Optison) 0.22 MG/ML 3ML VIAL IV ONE (10:00)
[2024-12-20] MEDS ORDERED: FLU VACC TS2025-26(6MOS UP)/PF (FLULAVAL) 45 MCG/0.5 ML SYRINGE IMVAC ONE (14:30)
--- NOTE | 2024-12-20 14:56 | VASCULAR REPORT ---
EXAM: VASC VL ESTHER ANKLE/BRACHIAL INDEX CLINICAL HISTORY: Cold feet/absent pulse Peripheral vascular disease COMPARISON: None TECHNIQUE: Bilateral systolic ankle and brachial pressures are attempted to be obtained. FINDINGS: Pressures: Right Left Brachial 154 mmHg PT [] noncompressible unable to obtain arterial pressures DP noncompressible unable to obtain arterial pressures Biphasic waveforms in the right dorsalis pedis artery. Monophasic waveform right posterior tibial artery. Monophasic waveform left posterior tibial, dorsalis pedis artery. 1.0-1.4: normal 0.91-0.99 borderline 0.9: abnormal (i.e. PAD) 0.4-0.9: [id number] PAD <0.4: suggestive of severe PAD ESSION: Nondiagnostic examination.
[2024-12-20] MEDS: vancomycin/NS 1 GM ADD-VANTAGE 250 ML IV SCH (15:07)
--- NOTE | 2024-12-20 15:08 | VASCULAR REPORT ---
ULTRASOUND CAROTID DUPLEX BILATERAL REASON FOR EXAM: Altered level of consciousness. COMPARISON: None TECHNIQUE: Using real-time freeze-frame technique with a high-frequency small parts transducer, multiple longitudinal and transverse sections were obtained. Simultaneous color flow Doppler imaging was performed. FINDINGS: There is Severe calcified plaque at the right carotid bifurcation and in the proximal right internal carotid artery. There is moderate calcified plaque of the left carotid bifurcation. Waveforms demonstrate expected morphology. There is spectral broadening of the waveforms within bilateral internal carotid arteries. Flow through the vertebral and external carotid arteries is antegrade bilaterally. PEAK SYSTOLIC VELOCITIES (cm/sec): RIGHT: CCA 51 Proximal ICA 261 Mid ICA 204 Distal ICA 53 ECA 179 ICA/CCA ratio 5.1 LEFT: CCA 82 Proximal ICA 112 Mid ICA 65 Distal ICA 63 ECA 123 ICA/CCA ratio 1.4 IMPRESSION: Severe atherosclerotic disease. Findings corresponds to greater than 70% luminal narrowing in the proximal right internal carotid artery. Any additional stenosis is estimated to be less than 50%. Measurement of carotid stenosis is based on velocity parameters that correlate the residual internal carotid diameter with that of the more distal vessel in accordance with the [place] Symptomatic Carotid Endarterectomy Trial (NASCET).
--- NOTE | 2024-12-20 16:46 | PROGRESS NOTE ---
Progress Note ID Providers to CC ~ Progress Note Progress Note: pt seen and examined-findings consistent with would dehiscence post melanoma resection-no need for vascular intervention-cont wound care.iv antibx PRASHANT HATFIELD MD Dec 20, 2024 16:46
--- NOTE | 2024-12-20 19:28 | CARDIOLOGY REPORT ---
APPROVED REPORT EXAM: Comprehensive 2D, Doppler, and color-flow Echocardiogram with saline. Patient Location: [facility] Blood Pressure: 143/77 mmHg Heart Rate: 80 bpm Indications CVA/TIA Congestive Heart Failure Hypertension Atrial Fibrillation AVR/Mechanical (1993) FIELD RESEARCH ASSISTANT: Marcella Jacques MD Previous ECHO: 09/24/19, [facility], EF: 60-65; mod RVE; sev LAE; AVR GRAD: ; PKV: 2.31; m-mod TR; AO Root: 4.0; ASC AO: 4.4 2D Dimensions LA Diam 5.2 cm IVSd 1.7 (0.7-1.1cm) LVDd 5.2 cm PWd 1.4 (0.7-1.1cm) IVSs 2.1 (0.8-1.2cm) LVDs 3.7 (2.5-4.0cm) PWs 2.5 (0.8-1.2cm) LVEF(%) 54.5 (>50%) Ao Asc Diam. 4.07 cm IVC 23.55 mm FS (%) 28.4 % SV 70.5 ml CO 4.4 L/min M-Mode Dimensions Left Atrium(MM) 5.43 (2.5-4.0cm) Aortic Root 3.74 (2.2-3.7cm) MV EPSS 1.0 (<0.5cm) Aortic Valve AoV Peak Nikita. 214.1 cm/s AoV VTI 42.6 cm AO Peak GR. 18.3 mmHg AO Mean GR. 10 mmHg LVOT VTI 25.71 cm LVOT Peak Nikita. 111.2 cm/s AV DI 0.60 % TDI Lateral E' P. V 12.65 cm/s Tricuspid Valve TR P. Velocity 374 cm/s RAP ESTIMATE 10 mmHg TR Peak Gr. 56 mmHg RVSP 66 mmHg LEFT VENTRICLE Normal LV size and function. Moderate concentric hypertrophy. Overall LVEF is 55-60%. RIGHT VENTRICLE Right ventricle is moderately dilated with adequate function. Estimated PA systolic pressure of 66 mm of mercury ATRIA Left atrium is severely dilated. Saline study was performed with 3 IV injections of 10 ccs of agitated normal saline at rest, with cough, and with valsalva. Negative saline study for right to left flow. AORTIC VALVE Mechanical aortic valve is present appears well seated with normal function. Peak / mean gradients of 18 / 10 mmHG. Peak velocity is measured at 2.14 m/sec. No insufficiency. MITRAL VALVE Moderate mitral annular calcification without stenosis. Trace regurgitation. TRICUSPID VALVE The tricuspid valve is normal in structure with mild regurgitation. PULMONIC VALVE Pulmonic valve is grossly normal in structure with physiologic insufficiency. GREAT VESSELS The aortic root is normal in size. Ascending aorta is dilated. IVC is dilated and collapses less than 50% with inspiration. PERICARDIUM Trace loculated pericardial effusion present without hemodynamic compromise. Anterior epicardial fat pad is present. Other Information Study Quality: Fair due to body habitus Conclusion Overall LVEF is 55-60%. Right ventricle is moderately dilated with adequate function. Estimated PA systolic pressure of 66 mm of mercury Saline study was performed with 3 IV injections of 10 ccs of agitated normal saline at rest, with cough, and with valsalva. Negative saline study for right to left flow. Mechanical aortic valve is present appears well seated with normal function. Peak / mean gradients of 18 / 10 mmHG. Peak velocity is measured at 2.14 m/sec. No insufficiency. Moderate mitral annular calcification without stenosis. Trace regurgitation. The tricuspid valve is normal in structure with mild regurgitation. Pulmonic valve is grossly normal in structure with physiologic insufficiency. Trace loculated pericardial effusion present without hemodynamic compromise. Anterior epicardial fat pad is present.
[2024-12-20] MEDS: CefTRIAXone/D5W-Rocephin 1gm 50 ML IV SCH (19:58)
[2024-12-21 03:47] LABS: CREATININE,URINE RANDOM 168.0 MG/DL; TOTAL PROTEIN,URINE RANDOM 131.5 MG/DL
[2024-12-21 04:02] LABS: OSMOLALITY UA 789.0 MOSM/K (50-1400); URINE AMPHETAMINE SCREEN NEGATIVE (Neg); URINE BARBITUATE SCREEN NEGATIVE (Neg); URINE BENZODIAZEPINES SCREEN NEGATIVE (Neg); URINE CANNABINOID SCREEN NEGATIVE (Neg); URINE COCAINE SCREEN NEGATIVE (Neg); URINE METHADONE SCREEN NEGATIVE (Neg); URINE OPIATE SCREEN NEGATIVE (Neg); URINE PHENCYCLIDINE SCREEN NEGATIVE (Neg)
[2024-12-21 05:24] LABS: UA EOSINOPHILS NO EOS /HPF
[2024-12-21 05:38] LABS: MEAN PLATELET VOLUME 9.5 FL (7.4-10.4); RED CELL DISTRIBUTION WIDTH 14.6 % (11.5-14.5)
[2024-12-21 05:48] LABS: INR 2.1 INR
[2024-12-21 05:59] LABS: CREATININE 1.07 MG/DL (0.60-1.10); TOTAL CARBON DIOXIDE 24.5 MMOL/L (24-32); eCRCL 64 ML/MIN; eGFR 67 ML/MIN
[2024-12-21 06:00] VITALS: BP 156/81; PULSE 59; RESP 13; TEMP 97.4; O2SAT 95
[2024-12-21 08:00] VITALS: BP_SYST 147; BP_SYST 174; BP_DIAS 75; BP_DIAS 92; PULSE 65; PULSE 69; RESP 13; O2SAT 95
[2024-12-21] MEDS: potassium Cl 20 mEq SR tablet PO PRN (08:34)
[2024-12-21] MEDS: metoprolol succinate 25mg (24-HOUR) SR. Tablet PO SCH (08:35)
[2024-12-21 10:00] VITALS: BP 149/64; PULSE 73; RESP 15; TEMP 97.1; O2SAT 98
[2024-12-21] MEDS ORDERED: Ensure Enlive - 237ML PO SCH (13:00)
[2024-12-21] MEDS: VANCOMYCIN LEVEL IV ONE (14:30)
[2024-12-21] MEDS ORDERED: VANCOmycin 1250MG/NS 250ml Bag 250 ML IV SCH (16:00)
[2024-12-21 16:30] VITALS: BP_SYST 147; BP_SYST 174; BP_DIAS 75; BP_DIAS 92; PULSE 65; PULSE 69
[2024-12-21 18:00] VITALS: BP 147/75; PULSE 65; RESP 17; TEMP 97.9; O2SAT 97
[2024-12-21] MEDS: Ensure Enlive - 237ML PO SCH (18:00)
--- NOTE | 2024-12-21 19:18 | PROGRESS NOTE- Residence ---
Progress Note - Resident Providers to CC Resident Creating Document: DOUGLAS TURCIOS RES ~ Antibiotic Timeout Antibiotic Ordered?: Yes Subjective Patient was seen and examined on bedside currently denies any active complain. Objective Vital Signs Date Time Temp Pulse Resp B/P (MAP) Pulse Ox O2 Delivery O2 Flow Rate FiO2 12/21/24 18:00 97.9 65 17 147/75 (99) 97 Room Air 12/20/24 13:38 0.0 Result Diagram: 12/21/2445612/21/24456 Awake , alert, and oriented x4 HEENT: Atraumatic, normocephalic, EOMI, anicteric sclera ; pink conjunctiva Neck: Trachea midline. Supple, full range of motion, no JVD Cardiac: Irregular rhythm, HR rate normal, Click heard on examination, normal S1 and S2. Respiratory: Equal breath sounds bilaterally, no tachypnea, no wheezing ,rub or rales, Chest wall is symmetric and without deformity. Gastrointestinal: Abdomen symmetric, non-distended, soft, non-tender, normal bowel sounds x4 quadrant, normoactive, no hepatosplenomegaly Musculoskeletal: 6 cm ulcerated infected wound located on left lower extremity which is covered with a dressing. Neurological: Mental status exam: alert and consciousness, orientation, memory, speech - Cranial nerve test: Cranial nerves 2-12 intact - Motor system: normal tone, Power 4/5 bilaterally lower extremities, no involuntary movements Upper extremities power 5/5 , no involuntary movement. - Sensory system: Numbness in lower extremities(Patient mentioned he is having peripheral neuropathy) Skin: Warm and dry Psychiatric:Appropriate mood and affect Coagulation Studies Laboratory Tests Test 12/20/24 06:47 12/21/24 04:57 Activated Partial Thromboplast Time 38 SECONDS (22-32) H Prothrombin Time 20.2 SECONDS (9.0-12.0) H INR International Normalized Ratio 2.1 INR Coagulation Comments Advance Care Planning Advanced Care plannin - 30 Minutes Plan Plan Acute metabolic encephalopathy 2/2 infected ulcer on left lower Extremity s/p resection of melanoma Sepsis POA Head CT-ruled out any acute intracranial abnormality CTA lower extremity - Multifocal high-grade stenoses in the left anterior tibial, posterior tibial and peroneal artery. On POA leukocytosis 18.4, normal today 6.6 Continues Rocephin and vancomycin. DCed fluids, previously he was on 100 mL/hour High-grade stenosis of multivessel in lower extremity CTA shows: Right lower extremity:T There is moderate stenosis of the popliteal trifurcation. Heavy atherosclerotic calcifications are present throughout the right anterior tibial, posterior tibial and peroneal artery. Evaluation in the calf arteries is significantly limited by the atherosclerotic calcifications in the vessels and the small size of the vessels which make contrast enhancement difficult to distinguish from the calcification. There appears to be multifocal high-grade stenoses in the right popliteal trifurcation, right posterior tibial, anterior tibial and peroneal arteries. Dorsalis pedis is heavily calcified and difficult to evaluate for patency. There is mild soft tissue swelling in the right lower extremity. Left lower extremity: The left common femoral artery and superficial femoral artery are patent with mild atherosclerotic calcification seen. The left popliteal artery is obscured at the level of the knee joint due to artifact from total knee arthroplasty. There are atherosclerotic calcifications in the popliteal trifurcation. There is significant multifocal stenoses in the left anterior tibial, posterior tibial and peroneal artery. Dorsalis pedis artery is heavily calcified and difficult to evaluate for patency. There is soft tissue swelling in the anterior and lateral lower extremity. There is contour irregularity in the skin of the distal lower extremity anterior to the tibia which may reflect cellulitis. No fluid collection. ABIs could not be performed was consulted who recommended no surgical intervention. Patient is on warfarin and aspirin already Acute kidney injury 2/2 renal tubular Stasis Resolved Paroxysmal Atrial fibrillation Rate controlled Patient mentioned history of atrial fibrillation and he follows cook chill technician Dr. Jacques Hypertension Continue losartan 100 mg PO Aortic stenosis s/p TAVR Continue warfarin pharmacy to dose Goal of INR 2.5-2.5 Acute on chronic heart failure with preserved ejection fraction LVEF is 60-65%. ( 09/24/19) On metoprolol 25 mg Lasix 40 mg IV b.i.d in view of bilateral leg swelling. Code Status: Full Code DVT Prophylaxis: Warfarin GI Prophylaxis: Pantoprazole 40 mg PO. Disposition: Will continue monitoring patient Possible discharge tomorrow, patient might need rehab Date of Service: Dec 21, 2024 Billing Provider: LITZY VILLALOBOS MD Common Visit Codes: [id number] INP/OBS CARE(HIGH) DOUGLAS TURCIOS, JAIME Dec 21, 2024 19:18 LITZY VILLALOBOS MD Dec 22, 2024 06:32
[2024-12-21 22:00] VITALS: BP_SYST 162; BP_SYST 172; BP_DIAS 74; BP_DIAS 79; PULSE 116; PULSE 70; RESP 14; TEMP 98; O2SAT 97
[2024-12-22 06:00] VITALS: BP 161/88; PULSE 80; RESP 18; TEMP 97.8; O2SAT 95
[2024-12-22 06:54] LABS: INR 1.9 INR
[2024-12-22 07:03] LABS: MEAN PLATELET VOLUME 9.4 FL (7.4-10.4); RED CELL DISTRIBUTION WIDTH 14.8 % (11.5-14.5)
[2024-12-22 07:18] LABS: CREATININE 1.11 MG/DL (0.60-1.10); TOTAL CARBON DIOXIDE 26.6 MMOL/L (24-32); eCRCL 62 ML/MIN; eGFR 64 ML/MIN
[2024-12-22 08:00] VITALS: BP_SYST 141; BP_SYST 166; BP_SYST 171; BP_DIAS 82; BP_DIAS 83; BP_DIAS 89; PULSE 69; PULSE 71; PULSE 80; RESP 18; O2SAT 95
[2024-12-22] MEDS ORDERED: CIPR250T4 PO (08:41)
[2024-12-22] MEDS ORDERED: WARF1TAB83 PO (08:42)
[2024-12-22 09:03] VITALS: BP_SYST 161; PULSE 80
[2024-12-22] MEDS: pantoprazole 40mg Tablet.DR PO SCH (09:03)
[2024-12-22] MEDS: ciprofloxacin lact 400MG/200ML 200 ML IV SCH (09:07)
--- NOTE | 2024-12-22 19:40 | DISCHARGE SUMMARY-Residence ---
Discharge Summary Providers to CC Resident Creating Document: DOUGLAS TURCIOS, JAIME ~ Discharge Summary Admission Diagnosis: Acute metabolic encephalopathy,FIORELLA Hospital Course DATE OF ADMISSION: 12/20/24 DATE OF DISCHARGE: 12/22/24 Discharge Diagnosis\Comment: Acute metabolic encephalopathy 2/2 infected ulcer on left lower Extremity s/p resection of melanoma, Sepsis POA Melanoma Peripheral Artery Disease Aortic stenosis s/p TAVR Acute kidney injury 2/2 renal tubular Stasis Resolved Paroxysmal Atrial fibrillation Hypertension Acute on chronic heart failure with preserved ejection fraction Operations\Procedures: none Consultants: Surgeon Complications: none Condition on DC: Stable New Medications: Ciprofloxacin HCl (Ciprofloxacin HCl) 250 Mg Tablet 3 TAB PO Q12H for 10 Days, #60 TAB Warfarin Sodium (Warfarin Sodium) 1 Mg Tablet 4 TAB PO DAILY for 3 Days, #12 TAB 0 Refills Continued Medications: Aspirin (Baby Aspirin) 81 Mg Tab.chew 1 TAB PO HS, TAB Atorvastatin Calcium (Atorvastatin Calcium) 20 Mg Tablet 1 TAB PO HS Furosemide 40 MG (Lasix) 40 Mg Tablet 1 TAB PO DAILY, TAB Losartan Potassium (Losartan Potassium) 100 Mg Tablet 1 TAB PO DAILY Metoprolol Succinate (Metoprolol Succinate) 25 Mg Tab.sr.24h 1 TAB PO DAILY Potassium Chloride (Potassium Chloride) 20 Meq Tablet.er 1 TAB PO DAILY Warfarin Sodium (Warfarin Sodium) 3 Mg Tablet 1 TAB PO DAILY Discharge Summary: Hospital Course This is 79 year old male with past medical history for hypertension, aortic stenosis s/p TAVR, AFIB presented to ER with confusion likely secondary to acute metabolic encephalopathy to an infected left lower-leg ulcer following melanoma resection.Initialy workup showed elevated WBC, lactic acidosis.Head ct ruled out acute intracranial abnormality,He was started on vancomycin, and fluids.In addition to that CTA of lower extremity was perfomed which showed multifocal hi gh grade stenosis, Multifocal high-grade stenoses in the left anterior tibial, posterior tibial and peroneal artery, complete CTA results below,aspirin was continued,Surgeon was consulted who recommended no intervention at this time,legs were swollen bilaterally and probnp was elevation in view of suspected HFPEF, Echo showed LVEF 55-60%, lasix 40 mg IV bid and metoprolol 25 mg was started, After lasix patient swelling was improved significantly.Pateint also had history of aortic stenosis s/p tavr for which warfarin pharmacy-guided dosing (INR goal 2.5-3.5) was continued,Afib was rate controlled. Patient was stable and ready for discharge and was advised to follow up with Vascular Surgeon outpatient and continue wound care. Physical Examination. Awake , alert, and oriented x4 HEENT: Atraumatic, normocephalic, EOMI, anicteric sclera ; pink conjunctiva Neck: Trachea midline. Supple, full range of motion, no JVD Cardiac: HR rate normal, Click heard on examination, normal S1 and S2. Respiratory: Equal breath sounds bilaterally, no tachypnea, no wheezing ,rub or rales, Chest wall is symmetric and without deformity. Gastrointestinal: Abdomen symmetric, non-distended, soft, non-tender, normal bowel sounds x4 quadrant, normoactive, no hepatosplenomegaly Musculoskeletal: 6 cm ulcerated infected wound located on left lower extremity which is covered with a dressing. Neurological: Mental status exam: alert and consciousness, orientation, memory, speech - Cranial nerve test: Cranial nerves 2-12 intact - Motor system: normal tone, Power 4/5 bilaterally lower extremities, no involuntary movements Upper extremities power 5/5 , no involuntary movement. - Sensory system: Dec sensation in bilateral lower extremities Lower extremities: peripheral pulses unable to palpate. Skin: Warm and dry Psychiatric:Appropriate mood and affect Imaging Aorta W/run off CTA Findings: Lung Bases: Lung bases are clear. The heart is enlarged. Liver: The liver is normal in size. Low attenuating subcentimeter lesions which are too small to characterize. No focal lesions. Gallbladder and Biliary Tree: The gallbladder is unremarkable. No intrahepatic or extrahepatic biliary ductal dilatation. Spleen: Unremarkable Pancreas: The pancreas enhances normally and there are no focal lesions. The main pancreatic duct is not dilated Adrenal Glands: Unremarkable Kidneys: Kidneys enhance symmetrically. No calculi or hydronephrosis. Left renal cyst. GI tract: The stomach is grossly normal in appearance. No evidence of small bowel wall thickening or abnormal dilatation to suggest bowel obstruction. There is colonic diverticulosis without acute diverticulitis. No findings to suggest acute appendicitis. Peritoneum/mesentery/retroperitoneum. No evidence of free intraperitoneal air. No ascites. No evidence of suspicious lymphadenopathy. Abdominal Wall: Fat containing umbilical hernia . Vasculature: There is no evidence of abdominal aortic aneurysm. There are atherosclerotic calcifications in the abdominal aorta and its branches particularly the celiac and superior mesenteric arteries without significant stenosis. The inferior mesenteric artery is patent. There is moderate stenosis of the origin of the left renal artery and mild to moderate stenosis of the origin of the right renal artery. The splenic artery is patent. Hepatic artery is patent. The bilateral common iliac arteries show scattered atherosclerotic calcifications without significant stenosis. Similar atherosclerotic calcifications are present in the bilateral external and internal iliac arteries. Lower extremity arteries are described below. No active contrast extravasation. Urinary Bladder: Grossly unremarkable for degree of distention. Pelvic Organs: Unremarkable Musculoskeletal: No evidence of periosteal reaction or cortical erosion. No acute fracture. No suspicious bone lesion. Fatty replacement in the bilateral lower extremity muscles. Spinal degenerative changes. Right lower extremity: There are mild atherosclerotic calcifications in the right common femoral and proximal superficial femoral artery without significant stenosis. There is slightly greater atherosclerotic calcifications causing mild stenosis in the distal superficial femoral and the popliteal artery. There is moderate stenosis of the popliteal trifurcation. Heavy atherosclerotic calcifications are present throughout the right anterior tibial, posterior tibial and peroneal artery. Evaluation in the calf arteries is significantly limited by the atherosclerotic calcifications in the vessels and the small size of the vessels which make contrast enhancement difficult to distinguish from the calcification. There appears to be multifocal high-grade stenoses in the right popliteal trifurcation, right posterior tibial, anterior tibial and peroneal arteries. Dorsalis pedis is heavily calcified and difficult to evaluate for patency. There is mild soft tissue swelling in the right lower extremity. No fluid collection. Left lower extremity: The left common femoral artery and superficial femoral artery are patent with mild atherosclerotic calcification seen. The left popliteal artery is obscured at the level of the knee joint due to artifact from total knee arthroplasty. There are atherosclerotic calcifications in the poplit eal trifurcation. There is significant multifocal stenoses in the left anterior tibial, posterior tibial and peroneal artery. Dorsalis pedis artery is heavily calcified and difficult to evaluate for patency. There is soft tissue swelling in the anterior and lateral lower extremity. There is contour irregularity in the skin of the distal lower extremity anterior to the tibia which may reflect cellulitis. No fluid collection. IMPRESSION: 1. Evaluation of the calf arteries is limited by the atherosclerotic calcifications in the vessels and the small size of the vessels which make contrast enhancement difficult to distinguish from the calcification. Within this limitation there are multifocal high-grade stenoses in the right popliteal trifurcation and calf arteries. Multifocal high-grade stenoses in the left anterior tibial, posterior tibial and peroneal artery. 2. Soft tissue swelling in the bilateral lower extremities, left greater than right which may reflect cellulitis in the appropriate clinical setting. No fluid collection. 3. Contour irregularity in the skin of the distal left lower extremity anterior to the tibia which may reflect cellulitis. 4. Dorsalis pedis artery is heavily calcified bilaterally and difficult to evaluate for patency. 5. Moderate stenosis of the origin of the left renal artery and mild to moderate stenosis of the origin of the right renal artery. 6. Colonic diverticulosis without acute diverticulitis. 7. Cardiomegaly. Carotid Artery U/S FINDINGS: There is Severe calcified plaque at the right carotid bifurcation and in the proximal right internal carotid artery. There is moderate calcified plaque of the left carotid bifurcation. Waveforms demonstrate expected morphology. There is spectral broadening of the waveforms within bilateral internal carotid arteries. Flow through the vertebral and external carotid arteries is antegrade bilaterally. PEAK SYSTOLIC VELOCITIES (cm/sec): RIGHT: CCA 51 Proximal ICA 261 Mid ICA 204 Distal ICA 53 ECA 179 ICA/CCA ratio 5.1 LEFT: CCA 82 Proximal ICA 112 Mid ICA 65 Distal ICA 63 ECA 123 ICA/CCA ratio 1.4 IMPRESSION: Severe atherosclerotic disease. Findings corresponds to greater than 70% luminal narrowing in the proximal right internal carotid artery. Any additional stenosis is estimated to be less than 50%. Echo Conclusion Overall LVEF is 55-60%. Right ventricle is moderately dilated with adequate function. Estimated PA systolic pressure of 66 mm of mercury Saline study was performed with 3 IV injections of 10 ccs of agitated normal saline at rest, with cough, and with valsalva. Negative saline study for right to left flow. Mechanical aortic valve is present appears well seated with normal function. Peak / mean gradients of 18 / 10 mmHG. Peak velocity is measured at 2.14 m/sec. No insufficiency. Moderate mitral annular calcification without stenosis. Trace regurgitation. The tricuspid valve is normal in structure with mild regurgitation. Pulmonic valve is grossly normal in structure with physiologic insufficiency. Trace loculated pericardial effusion present without hemodynamic compromise. Anterior epicardial fat pad is present. Vascular U/S TECHNIQUE: Bilateral systolic ankle and brachial pressures are attempted to be obtained. FINDINGS: Pressures: Right Left Brachial 154 mmHg PT [] noncompressible unable to obtain arterial pressures DP noncompressible unable to obtain arterial pressures Biphasic waveforms in the right dorsalis pedis artery. Monophasic waveform right posterior tibial artery. Monophasic waveform left posterior tibial, dorsalis pedis artery. 1.0-1.4: normal 0.91-0.99 borderline 0.9: abnormal (i.e. PAD) 0.4-0.9: [id number] PAD <0.4: suggestive of severe PAD IMPRESSION: Nondiagnostic examination. Chest X-Ray FINDINGS/IMPRESSION: Minimal basilar opacities. Enlargement of the cardio mediastinal silhouette. No pleural effusion or pneumothorax. Median sternotomy changes are noted. No acute osseous abnormality. Discharge Instructions YOUR VASCULAR ULTRASOUND SHOWS STENOSIS IN THE ATERIES OF LEGS, IT IS RECOMME NDED THAT YOU FOLLOW UP WITH DR HATFIELD VASCULAR SURGEON ON OUTPATIENT BASIS. Take Ciprofloxacin 250 mg every 12 hours for 10 days. Take Warfarin 4 mg for 3 days, then take your regular dose and follow up [facility] monitor your INR ,Goal of INR 2.5-3.5 Follow up with Cardiology and PCP within 2 weeks. Call 911 or go to nearest ER if you experience chest pain, shortness of breath. *Problems/Diagnosis: (1) Metabolic encephalopathy Status: Resolved Total Time Spent on D/C: > 30 Minutes Date of Service: Dec 22, 2024 Billing Provider: LITZY VILLALOBOS MD Common Visit Codes: 08002-ZML/OBS DISCH DAY >30min DOUGLAS TURCIOS, RES Dec 22, 2024 19:40 LITZY VILLALOBOS MD Dec 23, 2024 07:50
[2024-12-23] MEDS ORDERED: VANCOMYCIN LEVEL IV ONE (03:30)
== END 2024-12-22 11:00 | disposition home or self-care (01) | DRG 919 ==
LOC: ER 20:08 → ED HOLD 12-20 05:23 → ORTHO 4S 12-20 12:20
PROVIDERS: ADMIT Internal Medicine Sleep Medicine; ATTEND Internal Medicine
PROC: B4201ZZ Computerized Tomography (CT Scan) of Abdominal Aorta using Low Osmolar Contrast (ICD-10-PCS; principal; 2024-12-20)
PROC: B4241ZZ Computerized Tomography (CT Scan) of Superior Mesenteric Artery using Low Osmolar Contrast (ICD-10-PCS; 2024-12-20)
PROC: B4281ZZ Computerized Tomography (CT Scan) of Bilateral Renal Arteries using Low Osmolar Contrast (ICD-10-PCS; 2024-12-20)
PROC: B42C1ZZ Computerized Tomography (CT Scan) of Pelvic Arteries using Low Osmolar Contrast (ICD-10-PCS; 2024-12-20)
PROC: B42H1ZZ Computerized Tomography (CT Scan) of Bilateral Lower Extremity Arteries using Low Osmolar Contrast (ICD-10-PCS; 2024-12-20)
PROC: B4211ZZ Computerized Tomography (CT Scan) of Celiac Artery using Low Osmolar Contrast (ICD-10-PCS; 2024-12-20)
PROC: B42H1ZZ Computerized Tomography (CT Scan) of Bilateral Lower Extremity Arteries using Low Osmolar Contrast (ICD-10-PCS; 2024-12-20)
DX: T81.30XA Disruption of wound, unspecified, initial encounter (principal); A41.9 Sepsis, unspecified organism; G93.41 Metabolic encephalopathy; N17.0 Acute kidney failure with tubular necrosis; I50.33 Acute on chronic diastolic (congestive) heart failure; I11.0 Hypertensive heart disease with heart failure; I73.9 Peripheral vascular disease, unspecified; L97.828 Non-pressure chronic ulcer of other part of left lower leg with other specified severity; I48.0 Paroxysmal atrial fibrillation; E78.00 Pure hypercholesterolemia, unspecified; Y83.8 Other surgical procedures as the cause of abnormal reaction of the patient, or of later complication, without mention of misadventure at the time of the procedure; Y92.89 Other specified places as the place of occurrence of the external cause; Z79.82 Long term (current) use of aspirin; Z79.899 Other long term (current) drug therapy
CPT/HCPCS: 36415; 70450; 71045; 75635; 80048; 80053; 80061; 80202; 80305; 81001; 82140; 82570; 83036; 83605; 83880; 83935; 84133; 84145; 84156; 84300; 84443; 85007; 85025; 85610; 85651; 85730; 87040; 87070; 87077; 87081; 87088; 87186; 87207; 93005; 93306; 93880; 93922; 97161; 97530; 99285; A6212; A6213; A6258; A6446; A6449; G0378; J0696; J0744; J1644; J1938; J3373; J7030; Q9967